=== PATIENT | male | born 1935 | race Two or more races ===

== ENCOUNTER → 2017-07-13 | Outpatient (CLI) | payer MEDICARE, MEDICAID | END | disposition home or self-care (01) | LOC: RADMN 08:41 | PROVIDERS: ATTEND Internal Medicine Interventional Cardiology | DX: G93.89 Other specified disorders of brain (principal); R90.82 White matter disease, unspecified; I65.23 Occlusion and stenosis of bilateral carotid arteries; Z86.73 Personal history of transient ischemic attack (TIA), and cerebral infarction without residual deficits | CPT/HCPCS: 70450 ==